=== PATIENT | male | born 1950 | race Caucasian/White ===

== ENCOUNTER → 2016-12-16 | Outpatient (CLI) | payer MEDICARE ==
--- NOTE | 2016-12-22 08:11 | SLEEPCENT ---
DATE OF PROCEDURE: 12/16/2016 ORDERED BY: ALICE Gutierrez Nocturnal polysomnography was performed for the titration of pressure therapy in this patient diagnosed with obstructive sleep apnea syndrome based on clinical findings and home testing, which revealed a respiratory event index of 10.7. For testing, the patient was fit with a [employer] Quattro full face mask of small size. 5 cm of water pressure were applied to the circuit and the lights were extinguished. 7 hours and 31 minutes of data were reviewed. There were 253 minutes of sleep identified. Sleep latency was prolonged at 60 minutes. Rapid eye movement (REM) latency was short at 60 minutes. The sleep architecture remained fragmented through much of the study. Overall sleep efficiency was reduced by periods of wake to 56.9%. The patient's electrocardiogram (EKG) showed a sinus rhythm with an average heart rate of 68 beats per minute. Electroencephalogram (EEG) showed reasonably normal waveforms for awake and sleep. Persistence of respiratory events prompted an increase in CPAP pressure. The emergence of central events prompted a change and despite optimal mask fit and minimal air leak the patient was placed on bilevel therapy. Increased occurrence of central apneas were seen with associated oxygen desaturations into the mid 80s prompting the addition of a backup rate. Best sleep was seen on a bilevel pressure inspiratory 12/expiratory 8 with a backup rate of 10. There was only 29 minutes of test time at this level, however. Limb activity was also seen over the course of the study and limb movement arousals occurred 17.8 times per hour. IMPRESSION: 1. 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 2. Periodic limb movement disorder (G47.61). Index 17.8. RECOMMENDATION: Based on the results of this testing, optimal pressure therapy for the address of this patient's respiratory events would be delivered with a bilevel device, inspiratory 12/expiratory 8 with backup rate of 10 will be necessary in light of the occurrence of central apneas. Pending clinical response, interventions to reduce the frequency arousal from limb activity may also be helpful and given the complexity of this titration study re-titration at some point in the near future may also be necessary to optimize the patient's sleep.
== END ==
LOC: M SLEEP 19:25
PROVIDERS: ATTEND Nurse Practitioner Adult Health
DX: G47.31 Primary central sleep apnea (principal); G47.33 Obstructive sleep apnea (adult) (pediatric); G47.61 Periodic limb movement disorder

== ENCOUNTER → 2017-04-06 | Outpatient (REF) | payer MEDICARE ==
[2017-04-06 16:16] LABS: ANION GAP 8 MEQ/L (8-16); BLOOD UREA NITROGEN 14 MG/DL (7-18); CALCIUM LEVEL 8.6 MG/DL (8.8-10.2); CARBON DIOXIDE LEVEL 24 MEQ/L (21-32); CHLORIDE LEVEL 106 MEQ/L (98-107); CREATININE FOR GFR 1.07 MG/DL (0.70-1.30); GLOMERULAR FILTRATION RATE > 60.0 (>49); GLUCOSE, FASTING 95 MG/DL (80-110); POTASSIUM SERUM 4.3 MEQ/L (3.5-5.1); SODIUM LEVEL 138 MEQ/L (136-145)
== END ==
LOC: M LABDRWSH 15:24
PROVIDERS: ATTEND Family Medicine
DX: I10 Essential (primary) hypertension (principal)

== ENCOUNTER → 2018-01-30 | Outpatient (CLI) | payer MEDICARE ==
[2018-01-30 14:38] LABS: ANION GAP 8 MEQ/L (8-16); BLOOD UREA NITROGEN 12 MG/DL (7-18); CALCIUM LEVEL 8.5 MG/DL (8.8-10.2); CARBON DIOXIDE LEVEL 26 MEQ/L (21-32); CHLORIDE LEVEL 108 MEQ/L (98-107); CREATININE FOR GFR 1.26 MG/DL (0.70-1.30); GLOMERULAR FILTRATION RATE > 60.0 (>49); GLUCOSE, FASTING 95 MG/DL (70-100); POTASSIUM SERUM 4.2 MEQ/L (3.5-5.1); SODIUM LEVEL 142 MEQ/L (136-145)
== END ==
LOC: M SFHCSACK 11:00
DX: I10 Essential (primary) hypertension (principal)
CPT/HCPCS: 80048

== ENCOUNTER → 2018-04-07 | Outpatient (REF) | payer MEDICARE | LOC: M SFHCPLAZ 15:56 | DX: L72.12 Trichodermal cyst (principal) | CPT/HCPCS: 88304 ==